=== PATIENT | male | born 1995 | race African-American/Black ===

== ENCOUNTER → 2021-02-20 | Outpatient (CLI) | payer OTHER | LOC: COL.RAD 08:23 | DX: K58.2 Mixed irritable bowel syndrome (principal); R63.4 Abnormal weight loss | CPT/HCPCS: Q9967 ==

== ENCOUNTER → 2021-02-26 | Outpatient (CLI) | payer OTHER | LOC: COL.RAD 07:08 | DX: K58.2 Mixed irritable bowel syndrome (principal); R63.4 Abnormal weight loss; R68.81 Early satiety | CPT/HCPCS: A9541 ==

== ENCOUNTER → 2021-03-12 | Outpatient (CLI) | payer OTHER | LOC: COL.RAD 09:46 | DX: K21.9 Gastro-esophageal reflux disease without esophagitis (principal) | CPT/HCPCS: A9537; J2805 ==